=== PATIENT | male | born 1970 | race Caucasian/White ===

== ENCOUNTER 2021-09-01 04:28 | Day surgery (SDC) | payer BC ==
[2021-08-29 14:54] VITALS: BMI 45.1
[2021-09-01 11:02] VITALS: BP 135/84; PULSE 74; TEMP 97.6
== END 2021-09-01 11:09 | disposition home or self-care (01) ==
LOC: JASU-ENDO 04:28
PROVIDERS: ATTEND Internal Medicine Gastroenterology
PROC: 0DJD8ZZ Inspection of Lower Intestinal Tract, Via Natural or Artificial Opening Endoscopic (ICD-10-PCS; principal; 2021-09-01 10:15)
DX: Z12.11 Encounter for screening for malignant neoplasm of colon (principal)